=== PATIENT | male | born 1965 | race Caucasian/White ===

== ENCOUNTER 2017-01-14 18:10 | Emergency (ER) | payer SELFPAY ==
[~2017-01-14] VITALS: Wt 114.3 kg
[2017-01-14] MEDS ORDERED: Motrin,Rufen800 MG PO (19:37)
== END 2017-01-14 20:19 | disposition home or self-care (01) ==
LOC: ED 18:10
DX: S62.616A Displaced fracture of proximal phalanx of right little finger, initial encounter for closed fracture (principal); Z88.0 Allergy status to penicillin; Z88.1 Allergy status to other antibiotic agents; X58.XXXA Exposure to other specified factors, initial encounter; Y93.89 Activity, other specified; Y92.89 Other specified places as the place of occurrence of the external cause; Y99.8 Other external cause status

== ENCOUNTER → 2017-07-31 | Outpatient (CLI) | payer BC ==
[~2017-07-31] MED LIST: Motrin,Rufen800 MG PO
== END | disposition home or self-care (01) ==
LOC: CARD 14:00
DX: I51.7 Cardiomegaly (principal)

== ENCOUNTER 2020-09-03 16:59 | Emergency (ER) | payer OTHER ==
[~2020-09-03] VITALS: Ht 193 cm; Wt 114.3 kg
[2020-09-03] MEDS ORDERED: CEPHALEXIN500 M1 PO ×2 (20:02)
[2020-09-08] MEDS ORDERED: SERTRALINE HYDR50 MG PO (10:39)
[2020-09-08] MEDS ORDERED: LISINOPRIL20 MG PO (10:39)
== END 2020-09-03 20:30 | disposition home or self-care (01) ==
LOC: ED 16:59
DX: S62.630B Displaced fracture of distal phalanx of right index finger, initial encounter for open fracture (principal); Z88.0 Allergy status to penicillin; W29.8XXA Contact with other powered hand tools and household machinery, initial encounter; Y93.89 Activity, other specified; Y92.89 Other specified places as the place of occurrence of the external cause; Y99.8 Other external cause status

== ENCOUNTER → 2020-09-12 | Day surgery (SDC) | payer OTHER ==
[2020-09-08 11:24] VITALS: BP 142/94
[2020-09-08 12:44] LABS: BUN 8 mg/dl (7-24); CHLORIDE 108 mmol/L (98-107); POTASSIUM 3.9 mmol/L (3.5-5.1); SODIUM 138 mmol/L (136-145)
[~2020-09-12] VITALS: Ht 193 cm; Wt 114.3 kg
[~2020-09-12] MED LIST changes: +CEPHALEXIN500 M1 PO; +LISINOPRIL20 MG PO; +SERTRALINE HYDR50 MG PO
[2020-09-12 06:35] VITALS: BP 135/81
[2020-09-12 08:28] VITALS: BP 104/72
[2020-09-12 08:43] VITALS: BP 108/67
[2020-09-12 08:58] VITALS: BP 128/74
== END | disposition home or self-care (01) ==
LOC: SDC 09-08 11:00
PROVIDERS: ATTEND Orthopaedic Surgery
DX: S62.631A Displaced fracture of distal phalanx of left index finger, initial encounter for closed fracture (principal); I10 Essential (primary) hypertension; Z86.73 Personal history of transient ischemic attack (TIA), and cerebral infarction without residual deficits; Z88.0 Allergy status to penicillin; Z88.1 Allergy status to other antibiotic agents; Z20.828 Contact with and (suspected) exposure to other viral communicable diseases; W26.8XXA Contact with other sharp object(s), not elsewhere classified, initial encounter; Y93.89 Activity, other specified; Y92.89 Other specified places as the place of occurrence of the external cause; Y99.8 Other external cause status